=== PATIENT | female | born 1975 | race Caucasian/White ===

== ENCOUNTER → 2016-11-01 | Outpatient (CLI) | payer OTHER ==
[~2016-11-01] MED LIST: GADOBUTROL 7.5 MMOL/7.5 ML VIAL INT ART ONE; IOHEXOL 300 MG/ML 10ML VIAL. INT ART ONE; LIDOCAINE 1% Multi-Dose 20 ML VIAL. ID ONE
--- NOTE | 2016-11-01 12:52 | KCIC ---
PROCEDURE: Right elbow injection using fluoroscopic guidance, prior to MR. HISTORY: History of fall on ice, dislocation of the right elbow TECHNIQUE: The procedure was explained to the patient as were potential risks. All questions were answered. Informed written consent was obtained. The elbow was prepped and draped in the usual sterile manner. Following administration of local anesthetic, a 25-gauge needle was advanced into the right elbow from a lateral approach using fluoroscopic guidance. Following negative aspiration, 9 cc of a solution of 5cc Omnipaque-300 contrast, 5 cc 1% lidocaine, 10 cc normal saline, and 0.1 cc gadolinium was injected without difficulty. The needle was removed. There was good hemostasis at the injection site. The patient left in stable condition without immediate complication. The patient was given postprocedural instructions, and instructed to contact us or the ER if there are any complications. Fluoro time 00:58 Single fluoroscopic images obtained. MR to follow. IMPRESSION: Fluoroscopic guided right elbow injection for MRI. Electronically signed by: Hugh Castro (Nov 01, 2016 12:50:44)
--- NOTE | 2016-11-01 15:05 | KCIC ---
Examination: MRI right elbow arthrogram. HISTORY History of dislocation the right elbow, fall. COMPARISON None available. TECHNIQUE Multiplanar, multisequence MR imaging of the right elbow was performed after arthrogram injection Findings: The distal attachment of the triceps tendon to the olecranon process grossly appears intact. There is minimal trabecular edema identified in the capitellum. No obvious acute fracture identified. The attachment of the common extensor tendon, common flexor tendon grossly appears intact. There is complete tear of the ulnar collateral ligament at its distal attachment. There is some increased signal identified in the proximal attachment of the ulnar collateral ligament likely injury. The radial collateral ligament is not identified likely complete tear of the radial collateral ligament. There is some mild prominent tissue identified at the proximal attachment of the lateral ulnar collateral ligament could be the torn radial collateral ligament or partial tear of the lateral ulnar collateral ligament. The distal attachment of the lateral ulnar collateral ligament appears intact. The attachment the long head of the biceps tendon, brachialis tendons grossly appears intact. The ulnar nerve is mildly subluxed medially in relation to the antecubital fossa. Mild T2 signal identified within the subcutaneous tissue posterior to the olecranon process likely soft tissue injury. There is a faint low T2 signal identified in the 80 capitellar joint, best visualized on series 9, image number 18. IMPRESSION - Tear of the ulnar collateral ligament from its is distal attachment. There is increased signal identified in the proximal attachment of the ulnar collateral ligament likely secondary to injury. - The radial collateral ligament is not identified likely complete tear. There is some mild prominent tissue identified at the proximal attachment of the lateral ulnar collateral ligament could be the torn radial collateral ligament or partial tear of the lateral ulnar collateral ligament. There is increased signal identified in the proximal attachment of the lateral ulnar collateral ligament likely injury/partial tear. - Mild bone marrow contusion identified in the capitellum. - The ulnar nerve is mildly subluxed medially in relation to the antecubital fossa. - There is a faint low T2 signal identified in the 80 capitellar joint, best visualized on series 9, image number 18. Uncertain etiology could be a synovial fold or loose body. Electronically signed by: Hugh Castro (Nov 01, 2016 15:04:52)
== END | disposition home or self-care (01) ==
LOC: KCIC 10:15
PROVIDERS: ATTEND Orthopaedic Surgery
DX: S53.441A Ulnar collateral ligament sprain of right elbow, initial encounter (principal); Z87.891 Personal history of nicotine dependence
CPT/HCPCS: 73085; 73222; Q9967; A9585